=== PATIENT | male | born 1960 | race American Indian/Alaskan Native ===

== ENCOUNTER 2018-11-24 07:59 | Day surgery (SDC) | payer OTHER ==
[~2018-11-24 07:59] MED LIST: NACL 0.9% 1000 ML 1,000 ML IV SCH
[2018-11-24] MEDS ORDERED: WATER FOR IRRIG STERILE IR ONE (08:18)
--- NOTE | 2018-11-24 08:36 | Anesthesia Day of Surgery ---
Anesthesia Day of Surgery - Day of Surgery Patient Examined: Yes Patient H&P Reviewed: Yes Patient is NPO: Yes
--- NOTE | 2018-11-24 08:36 | Anesthesia Consultation ---
Anesthesia Consult and Med Hx Date of service: 11/24/18 - Airway Anesthetic Teeth Evaluation: Good ROM Head & Neck: Adequate Mental/Hyoid Distance: Adequate Mallampati Class: Class II Intubation Access Assessment: Probably Good - Pulmonary Exam CTA: Yes - Cardiac Exam Cardiac Exam: RRR - Pre-Operative Health Status ASA Pre-Surgery Classification: ASA1 Proposed Anesthetic Plan: MAC - Pulmonary Hx Smoking: No - Cardiovascular System Hx Hypertension: No (HLD) Hx Heart Attack/AMI: No - Central Nervous System CVA: No - Gastrointestinal Hx Gastroesophageal Reflux Disease: No - Endocrine Hx Renal Disease: No Hx Liver Disease: No Hx Insulin Dependent Diabetes: No Hx Non-Insulin Dependent Diabetes: No Hx Thyroid Disease: No - Other Systems Hx Obesity: No - Additional Comments Anesthesia Medical History Comments: No hx anesthetic complications. Screening colonoscopy.
[2018-11-24] MEDS ORDERED: DIPRIVAN 10 MG/ML IV ONE ×3 (09:29→10:16)
[2018-11-24] MEDS ORDERED: XYLOCAINE MPF 2% ONE (09:30)
--- NOTE | 2018-11-24 10:43 | Procedure Note ---
Date of procedure: 11/24/18 Pre-op diagnosis: Colon Polyp Screening Post-op diagnosis: other (Colon Polyps (Ascending Colon Polyp-could not retrieved because of its position; Recto-sigmoid polyp removed by cold biopsy)/Minor,Internal Hemorrhoid) Procedure: Colonoscopy withCold Biopsy Anesthesia: MAC Surgeon: MARY COOL Estimated blood loss: minimal Pathology: list Specimen disposition: to lab Condition: stable Disposition: same day (Avoid aspirin and NSAID for 4 days; otherwise resume home medication. Follow up in 1 to 2 weeks ([phone]).)
--- NOTE | 2018-11-24 11:08 | Operative Report ---
PROCEDURE: Colonoscopy. INDICATIONS: This is a 58-year-old -[place] gentleman who had a prior history of colon polyp. Repeat colonoscopy was done to make sure there was no new recurrence of any polyps. The procedure was done after getting informed consent with MAC anesthesia. Initial rectal exam was unremarkable. Instrument was passed through the rectum onto the cecum, which was identified with ileocecal valve and appendiceal orifice. The scope was retroflexed in the cecum. On the retroflexed view, there was a polyp noted in the ascending colon under a fold, which appeared to be about 9-10 mm in diameter; however, repeated attempts to snare the polyp were not successful because of the position and the patient will have to be brought back for repeat colonoscopy possibly in 6 months' time. The remaining part of the proximal colon, transverse colon, descending colon, and sigmoid showed normal mucosa. In the rectosigmoid area, there was a small 7-8 mm polyp that was removed by cold biopsy and the rectum showed some minor internal hemorrhoid on the retroverted view. There was minimal bleeding from the biopsy sites and no complications associated with the procedure. Procedure was done in the GI lab with assistance of the GI lab team, which included AILEEN Alvarez as well as Car marquez and assistance of anesthesia. ASSESSMENT: Colon polyps, one in the ascending colon that could not be removed because of its position and the second in the rectosigmoid area, there was minimal bleeding associated with the procedure. The patient will be asked to follow up and a repeat colonoscopy will need to be done in 6 months' time. [facility]# [id number] MICHAEL/ALVARO
[2018-11-24 11:20] VITALS: BP 119/74
== END 2018-11-24 08:00 | disposition home or self-care (01) ==
LOC: GIO 07:59
DX: Z12.11 Encounter for screening for malignant neoplasm of colon (principal); K63.5 Polyp of colon; K64.8 Other hemorrhoids; E78.00 Pure hypercholesterolemia, unspecified; I10 Essential (primary) hypertension; F41.9 Anxiety disorder, unspecified; Z90.49 Acquired absence of other specified parts of digestive tract; Z98.890 Other specified postprocedural states
CPT/HCPCS: 45380; 88305; J2704; J7030

== ENCOUNTER 2019-03-07 09:32 | Emergency (ER) | payer OTHER ==
[2019-03-07 09:38] VITALS: BP 134/63
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
== END 2019-03-07 13:29 | disposition home or self-care (01) ==
LOC: ED 09:32
DX: S39.012A Strain of muscle, fascia and tendon of lower back, initial encounter (principal); I10 Essential (primary) hypertension; Z90.49 Acquired absence of other specified parts of digestive tract; Z79.899 Other long term (current) drug therapy; V49.49XA Driver injured in collision with other motor vehicles in traffic accident, initial encounter; Y93.89 Activity, other specified; Y92.410 Unspecified street and highway as the place of occurrence of the external cause; Y99.8 Other external cause status

== ENCOUNTER 2019-07-15 09:56 | Day surgery (SDC) | payer OTHER ==
[~2019-07-15 09:56] MED LIST changes: -NACL 0.9% 1000 ML 1,000 ML IV SCH; +SODIUM CHLORIDE 0.9% 1000 ML 1,000 ML IV SCH
--- NOTE | 2019-07-15 10:51 | Anesthesia Consultation ---
Anesthesia Consult and Med Hx Date of service: 07/15/19 - Airway Anesthetic Teeth Evaluation: Good ROM Head & Neck: Adequate Mental/Hyoid Distance: Adequate Mallampati Class: Class II - Pre-Operative Health Status ASA Pre-Surgery Classification: ASA2 Proposed Anesthetic Plan: MAC - Pulmonary Hx Smoking: No - Cardiovascular System Hx Hypertension: Yes Hx Coronary Artery Disease: Yes (abnormal thalium test 2013, EF 60-65% on cath) Hx Heart Attack/AMI: No - Central Nervous System CVA: No Hx Psychiatric Problems: No - Gastrointestinal Hx Ulcer: No (h/o colon polyps) Hx Gastroesophageal Reflux Disease: No - Endocrine Hx Renal Disease: No Hx Liver Disease: No Hx Insulin Dependent Diabetes: No Hx Non-Insulin Dependent Diabetes: No Hx Thyroid Disease: No - Other Systems Hx Cancer: No Hx Obesity: No
--- NOTE | 2019-07-15 10:52 | Anesthesia Day of Surgery ---
Anesthesia Day of Surgery - Day of Surgery Patient Examined: Yes Patient H&P Reviewed: Yes Patient is NPO: Yes
[2019-07-15] MEDS ORDERED: propofoL 200 MG/20 ML VIAL IV ONE ×2 (11:41)
--- NOTE | 2019-07-15 12:36 | Procedure Note ---
Date of procedure: 07/15/19 Pre-op diagnosis: H/O Colon Polyp Post-op diagnosis: other (No Colon Polyp now/ Minor,Solitary Left Colon Diverticuli/ Minor,Internal Hemorrhoid) Procedure: Colonoscopy Anesthesia: MAC Surgeon: MARY COOL Estimated blood loss: none Pathology: none Condition: stable Disposition: same day (Resume home medication. Follow up in 1 to 2 weeks ([phone]). repeat colonoscopy in 2 years.)
--- NOTE | 2019-07-15 12:57 | Operative Report ---
PROCEDURE: Colonoscopy. INDICATIONS: A 58-year-old -[place] gentleman who had a colonoscopy last year and had polyps removed. There was 1 polyp that was in the ascending colon that could not be removed at that time in spite of several attempts to burn it and also to remove it by snare polypectomy and cold biopsy. Repeat colonoscopy was done to make sure the polyp was there and to remove it if possible. DESCRIPTION OF PROCEDURE: The procedure was done after getting informed consent, with MAC anesthesia. Initial rectal exam was unremarkable. Instrument was passed through the rectum onto the cecum, which was identified with ileocecal valve and appendiceal orifice. Visualization was fair to good. The cecum was also examined on the retroverted view. No polyps were noted either in the cecum or the ascending colon during this exam in spite of repeated attempts to look for it. It is possible that the polyp may have sloughed off because of the application of heat during the last colonoscopy. The cecum, ascending colon, transverse colon showed normal mucosa. There were a solitary small diverticula noted in the left colon and the rectum showed some minor internal hemorrhoid on the retroverted view. No biopsies were done. There was no bleeding associated with the procedure. No complications associated with the procedure. ASSESSMENT: History of colon polyps, none now. Minor solitary left colon diverticula, minor internal hemorrhoid. PLAN: To resume previous medication. Possibly repeat colonoscopy in 2-3 years' time. The patient will be asked to follow up in the office in 1-2 weeks' time. JOB# [id number] MICHAEL/ALVARO
[2019-07-15] MEDS ORDERED: WATER FOR IRRIG STERILE 250 ML BOTTLE IR ONE (12:58)
[2019-07-15] MEDS ORDERED: LIDOCAINE MPF (2%) 20 MG/1 ML VIAL 5 ML ONE (13:00)
[2019-07-15 13:01] VITALS: BP 107/65
--- NOTE | 2019-07-15 13:14 | Post Anesthesia Evaluation ---
- Post Anesthesia Evaluation Patient Participated: Yes Airway Patent: Yes Stable Respiratory Function: Yes Nausea/Vomiting: No Temp > 96.8F: Yes Pain Manageable: Yes Adequeate Hydration: Yes Anesthesia Complications: No
== END 2019-07-15 13:20 | disposition home or self-care (01) ==
LOC: GIO 09:56
DX: Z09 Encounter for follow-up examination after completed treatment for conditions other than malignant neoplasm (principal); K57.30 Diverticulosis of large intestine without perforation or abscess without bleeding; K64.8 Other hemorrhoids; I10 Essential (primary) hypertension; F41.8 Other specified anxiety disorders; I25.10 Atherosclerotic heart disease of native coronary artery without angina pectoris; E78.00 Pure hypercholesterolemia, unspecified; Z90.49 Acquired absence of other specified parts of digestive tract; Z86.010 Personal history of colon polyps
CPT/HCPCS: 45378; J2704; J7030